=== PATIENT | female | born 1990 | race Caucasian/White ===

== ENCOUNTER 2022-07-22 06:56 | Emergency (ER) | payer BC ==
[~2022-07-22] VITALS: Ht 162.5 cm; Wt 127.0 kg
[2022-07-22 09:02] LABS: BASO % 0.7 % (0.0-1.0); EOS # 0.1 10*3/uL (0.0-0.4); EOS % 2.6 % (1.0-4.0); HEMATOCRIT 40.8 % (37.0-47.0); LYMPH # 1.8 10*3/uL (1.3-4.4); LYMPH % 33.5 % (27.0-41.0); MEAN CELL VOLUME 90.3 fl (81.0-99.0); MEAN CORPUSCULAR HGB 29.6 pg (27.0-31.0); MEAN CORPUSCULAR HGB CONC 32.8 g/dl (33.0-37.0); MONO # 0.3 10*3/uL (0.1-1.0); NEUT # 3.1 10*3/uL (2.3-7.9); NEUT % 56.8 % (47.0-73.0); PLATELET COUNT AUTOMATED 313 10*3/uL (130-400); RED BLOOD COUNT 4.52 10*6/uL (4.10-5.10); RED CELL DISTRI WIDTH 12.4 % (0-14.5); WHITE BLOOD COUNT 5.5 10*3/uL (4.8-10.8)
[2022-07-22 09:19] LABS: ALKALINE PHOSPHATASE 115 U/L (45-117); BUN 10 mg/dl (7-24); CHLORIDE 109 mmol/L (98-107); POTASSIUM 3.9 mmol/L (3.5-5.1); SGOT/AST 111 IU/L (3-35); SGPT/ALT 203 U/L (12-78); SODIUM 140 mmol/L (136-145)
[2022-07-22] MEDS ORDERED: PREDNISONE20 M1 PO (10:19)
== END 2022-07-22 10:26 | disposition home or self-care (01) ==
LOC: ED 06:56 → EDBD 07:01 → ED 10:26
PROVIDERS: Internal Medicine
DX: L25.9 Unspecified contact dermatitis, unspecified cause (principal); Z88.1 Allergy status to other antibiotic agents